=== PATIENT | female | born 1995 | race Caucasian/White ===

== ENCOUNTER 2019-11-21 05:39 | Emergency (ER) | payer SELFPAY ==
--- NOTE | ~2019-11-21 | XR_ITS ---
EXAMINATION: XR chest 2V DATE: 11/21/2019 06:11 INDICATION: Midsternal and left-sided chest pain TECHNIQUE: PA and lateral views of the chest are obtained. COMPARISON: None available FINDINGS: The lungs are free of acute opacities. There is no pleural effusion or pneumothorax. The ca rdiomediastinal silhouette is normal. The visualized bones and soft tissues are unremarkable. IMPRESSION: 1. No acute cardiopulmonary abnormality. Reviewed, dictated and finalized at location A.
[2019-11-21 05:47] VITALS: BP 173/94; PULSE 85; PULSE 87; RESP 18; TEMP 36.6; O2SAT 100
--- NOTE | 2019-11-21 05:51 | ECG_ITS ---
Measurements Intervals [employer] Rate: 85 P: 14 OR: 167 QRS: -3 QRSD: 98 T: 17 QT: 384 QTc: 457 Interpretive Statements SINUS RHYTHM BASELINE ARTIFACT- III, AVF, V1, V4-V6 NORMAL ECG Electronically Signed On 11-21-2019 7:58:36 CDT by Bennie Ashford D.O.
[2019-11-21 06:02] LABS: Basophils Absolute Auto 0.1 K/mm3 (0.0-0.1); Basophils Percent Auto 0.5 % (0.2-1.2); Eosinophils Absolute Auto 0.1 K/mm3 (0-0.3); Eosinophils Percent Auto 0.6 % (0-4.4); Hematocrit 42.2 % (37.0-47.0); Hemoglobin 13.3 g/dL (12.0-15.0); Immature Granulocyte Absolute 0.07 K/mm3 (0.00-0.031); Immature Granulocyte Percent A 0.5 % (0-0.5); Lymphocytes Absolute Auto 4.74 K/mm3 (0.9-3.2); Lymphocytes Percent Auto 31.7 % (18.3-44.2); Mean Corpuscular HGB Conc 31.5 g/dl (32-36); Mean Corpuscular Volume 82.4 fl (80-100); Mean Platelet Volume 10.1 fl (7.4-10.4); Monocytes Absolute Auto 1.1 K/mm3 (0.1-0.6); Neutrophils Percent Auto 59.7 % (45.5-73.1); Platelet Count Result 391 k/mm3 (150-375); Red Blood Count 5.12 M/mm3 (4.2-5.4); Red Cell Distribution Width 14.8 % (11.5-14.5)
[2019-11-21 06:13] LABS: INR 0.9
[2019-11-21 06:14] LABS: Partial Thromboplastin Time 27.7 SECONDS (22.3-36.8)
--- NOTE | 2019-11-21 06:27 | ED.CHESTPAIN ---
HPI - Chest Pain General Chief Complaint: Chest Pain Stated Complaint: I had a heart attack Time Seen by Provider: 11/21/19 06:00 Source: patient Mode of arrival: ambulatory Limitations: no limitations History of Present Illness HPI narrative: 24 yo female smoker who presents with c/o left parasternal chest pain x 1 week. PAtient states she has episodes of chest pain that last from 5 minutes to 30 minutes. She states her pain will occur at rest and activity. She states her pain worsened today so she came into the ER. It radiates to her back. She reports a cough and sob but states this is chronic due to her smoking. She denies fever or chills. She has had nausea for 2 months but denies abdominal pain. She has been taking aspirin for her pain without relief. complaint: chest pain Onset (ago): week(s) Timing of current episode: episodic and still present Onset: during rest Pain location: left chest and parasternal Pain radiation: back Quality: sharp Relieving factors: nothing Exacerbating factors: movement Associated symptoms: nausea Related Data Allergies Allergy/AdvReac Type Severity Reaction Status Date / Time Penicillins Allergy Swelling Verified 11/21/19 05:50 Review of Systems Review of Systems: All systems reviewed & are unremarkable except as noted in HPI and below Constitutional: Constitutional: Denies chills and Denies fever(s) Cardiovascular: Cardiovascular: Reports chest pain, Denies rapid heart rate and Denies radiating jaw, neck or arm pain Respiratory: Respiratory: Denies chest congestion, Reports cough and Reports dyspnea Gastrointestinal: Gastrointestinal: Denies abdominal pain, Reports nausea and Denies vomiting PMFSH Past Medical History Medical History (Updated 11/21/19 @ 07:36 by Michaelle Nelson MD) Anxiety Depression Social History Social History (Updated 11/21/19 @ 06:32 by Michaelle Nelson MD) Smoking packs per day: 0.5 Smoking cigarettes per day: 10.0 Alcohol intake: never Substance use: never Gender identity (if verbalized by the patient): Female Exam Narrative: Exam Narrative: GENERAL: Well-appearing, well-nourished, and in no acute distress. HEAD: Normocephalic, atraumatic EYES: PERRLA and EOMI, conjunctiva clear without discharge NOSE: Nares clear, no rhinorrhea or epistaxis , nose ring in place THROAT:Mucous membranes moist, Oropharynx normal without erythema, exudate, peritonsillar swelling or fluctuance NECK: Supple, without lymphadenopathy or mass RESPIRATORY: No respiratory distress, Airway patent, Respirations non-labored, Clear to auscultation without rales, rhonchi or wheeze; reproducible left sternal chest tenderness HEART: Regular rate and rhythm. No murmur heard. Normal peripheral pulses. ABDOMEN: Soft, nontender, nondistended, normal active bowel sounds. No masses. No rebound or guarding, No organomegaly. EXTREMITIES: No edema, normal strength with full range of motion. SKIN: Warm, dry, normal color without rash NEURO: Alert and oriented x3. CN 2-12 grossly intact. No focal deficits. PSYCH: Normal mood and affect. Course Reevaluation(s) Reevaluation #1: I have discussed with patient labs unremarkable other than leukocytosis. Date: 11/21/19 Time: 07:34 Vital Signs Vital signs: Vital Signs Temperature 97.9 F 11/21/19 05:47 Pulse Rate 87 11/21/19 05:47 Respiratory Rate 18 11/21/19 05:47 Blood Pressure 173/94 H 11/21/19 05:47 Pulse Oximetry 100 11/21/19 05:47 Temperature 97.9 F 11/21/19 05:47 Pulse Rate 74 11/21/19 08:10 Respiratory Rate 14 11/21/19 08:10 Blood Pressure 145/70 H 11/21/19 08:10 Pulse Oximetry 100 11/21/19 08:10 MDM - Chest Pain Lab Data Attestation: I reviewed the patient's lab results. Result diagrams: 11/21/19 05:53 11/21/19 06:32 Labs: Lab Results 11/21/19 11/21/19 11/21/19 Range/Units 05:53 05:53 06:32 WBC 15.0 H (4.5-10.
[2019-11-21] MEDS: KETOROLAC 30 MG/ML VIAL (*BKC) IV PUSH (06:33)
[2019-11-21 06:36] VITALS: BP 144/74; PULSE 82; RESP 18; O2SAT 98
[2019-11-21 06:52] LABS: Alanine Aminotransferase 17 U/L (4-35); Albumin Level 4.5 g/dL (3.5-5.1); Alkaline Phosphatase 91 U/L (38-126); Aspartate Amino Transferase 21 U/L (14-36); Bilirubin,Total 0.3 mg/dL (0.2-1.3); Blood Urea Nitrogen 8 mg/dL (7-17); Calcium 9.5 mg/dL (8.4-10.2); Carbon Dioxide 25 mmol/L (22-30); Chloride 103 mmol/L (98-107); Estimated Glomerular Filt Rate > 60; Glucose 104 mg/dL (65-105); Lipase 59 U/L (23-300); Potassium 3.5 mmol/L (3.4-5.0); Sodium 140 mmol/L (137-145)
[2019-11-21 06:58] LABS: D Dimer 0.27 ug/mL (<0.48)
[2019-11-21 07:03] LABS: Troponin I < 0.012 ng/mL (0.000-0.034)
[2019-11-21 08:10] VITALS: BP 145/70; PULSE 74; RESP 14; O2SAT 100
== END 2019-11-21 08:11 | disposition home or self-care (01) ==
PROVIDERS: Emergency Medicine; Emergency Provider General Practice
DX: R07.9 Chest pain, unspecified (principal); D72.829 Elevated white blood cell count, unspecified; F17.210 Nicotine dependence, cigarettes, uncomplicated
CPT/HCPCS: 36415; 71046; 80048; 80076; 83690; 84484; 85025; 85380; 85610; 85730; 93005; 96374; 99284; J1885